=== PATIENT | male | born 1945 | race Caucasian/White ===

== ENCOUNTER → 2017-03-21 | Day surgery (SDC) | payer MEDICARE, OTHER ==
[~2017-03-21] MED LIST: AMLODIPINE BESYL5 MG PO; ASPIRIN ENTERI325 M1 PO; ASPIRIN PO; AZITHROMYCIN500 MG PO; BAYER ASPIRIN325 M1 PO; BYSTOLIC5 MG PO; CARBATROL200 MG PO; COMBIVENT U/D3 ML INH; CRESTOR PO; FISH OIL 1,0001 CAP PO; FISH OIL 1,0001 EAC1 PO; GLIPIZIDE XL5 MG PO; GLIPIZIDE5 MG/BOTTL PO; GLUCOPHAGE500 MG PO; HCTZ PO; HUMIBID-LA600 MG PO; HYDRALAZINE HCL25 MG PO; HYDROCODON-ACE1 EAC9 PO; HYDROCORTISONE10 M2 PO; KEFLEX500 MG PO; LISINOPRIL PO; LISINOPRIL10 MG PO; LOPRESSOR PO; PLAVIX PO; PREDNISONE10 MG PO; PRINIVIL40 MG PO; PROTONIX PO; SIMVASTATIN40 MG PO; SIMVASTATIN80 MG PO; SPIRIVA18 MCG INH; SYMBICORT INH; TOPROL XL PO; ZOCOR PO
--- NOTE | ~2017-03-21 | OR ---
Unit #: [id number] #: [id number] Patient: MOMO ALEMAN [id number] [address] [address] [id number] O MR#: [id number] NAME: MOMO ALEMAN ROOM: Date of Procedure: 03/21/2017 Admission Date: 03/21/2017 Surgeon: Domenico Haider M.D. : 1945 Attending Physician: Domenico Haider M.D. Primary Care Physician: Marj Brown M.D. OPERATIVE REPORT PREOPERATIVE DIAGNOSES Neck pain, cervical radiculopathy, degenerative cervical disk and spine disease. POSTOPERATIVE DIAGNOSES Neck pain, cervical radiculopathy, degenerative cervical disk and spine disease. PROCEDURE PERFORMED Cervical epidural steroid injection with intravenous sedation under fluoroscopic guidance for needle localization. HISTORY The patient is a 71-year-old male with a several week history of worsening left periscapular, trapezius, shoulder and upper extremity pain, paresthesia and numbness. There was no weakness. There was no specific triggering etiology for this. It was concerned that there maybe a component of shoulder pathology, however, an intra-articular injection did not change his symptom complex. He failed to settle with conservative measures. So, plan is for trial of epidural steroids based on his history, pathology, and symptomatology. Risks and benefits involved were reviewed. DESCRIPTION OF PROCEDURE The patient was placed in a seated position. Standard monitors were applied. Then, 2 mg of Versed were given for sedation and anxiolysis, which were adequate. Vital signs remained stable. Sterile prep and drape then of the cervical area was performed. The skin at the C5-C6 level was localized with 1% lidocaine. An 18-gauge [employer] needle was then advanced via hanging drop technique under fluoroscopic guidance in toward the epidural space. The patient did not complain of pain or paresthesia during needle advancement. After confirming proper positioning with fluoroscopy and radiographic contrast, 80 mg of Depo-Medrol and 2 mL of 0.25% bupivacaine were deposited. The patient tolerated the procedure otherwise well and was discharged to the recovery room in stable condition. Dictated by... Domenico Haider M.D. LHP/modl Unit #: [id number] #: [id number] Patient: MOMO ALEMAN TD: 03/21/2017 08:41 JOB #: [id number] CC: Alen Sharma M.D. OPERATIVE REPORT Page 1 of 1 X Domenico Haider MD X PROCEDURE OPERATIVE NOTE
== END | disposition home or self-care (01) ==
LOC: CCSC 07:08
DX: M50.122 Cervical disc disorder at C5-C6 level with radiculopathy (principal); M50.121 Cervical disc disorder at C4-C5 level with radiculopathy; I10 Essential (primary) hypertension; I73.9 Peripheral vascular disease, unspecified; M19.90 Unspecified osteoarthritis, unspecified site; Z79.899 Other long term (current) drug therapy
CPT/HCPCS: 82947; J1040; J2250

== ENCOUNTER → 2017-03-28 | Day surgery (SDC) | payer MEDICARE, OTHER ==
--- NOTE | ~2017-03-28 | OR ---
Unit #: [id number] #: [id number] Patient: MOMO ALEMAN [id number] [address] [address] [id number] O MR#: [id number] NAME: MOMO ALEMAN ROOM: Date of Procedure: 03/28/2017 Admission Date: 03/28/2017 Surgeon: Domenico Haider M.D. : 1945 Attending Physician: Domenico Haider M.D. Primary Care Physician: Marj Brown M.D. PROCEDURE OPERATIVE NOTE PREOPERATIVE DIAGNOSIS Neck pain, cervical radiculopathy, degenerative cervical disc and spine disease. POSTOPERATIVE DIAGNOSIS Neck pain, cervical radiculopathy, degenerative cervical disc and spine disease. PROCEDURE PERFORMED Cervical epidural steroid injection with intravenous sedation under fluoroscopic guidance for needle localization. HISTORY The patient is a 71-year-old male with a several months history of worsening left parascapular, shoulder and upper extremity pain, intermittent right upper extremity numbness, felt to be associated with cervical disc and spine disease. (1) multi-level significant degenerative disc disease with significant C4-5 degenerative anterolisthesis. Decision was made with the patient for a trial of epidural steroid injections. Initial injection along the cervical spine resulted in mild change at best. Based on his pathology and symptomatology of expected better response, it sometimes does take several injections to have a better impact. Will proceed with a second injection today and enter at a different level. PROCEDURE The patient was placed in a seated position. Standard monitors were applied. 2 mg of versed were given for sedation and anxiolysis which were adequate. Vital signs remained stable. Sterile prep and drape then of the cervical area was performed. The skin then at the C5-6 level was localized with 1% lidocaine. An 18-gauge [employer] needle was then advanced via hanging drop technique and fluoroscopic guidance in toward the epidural space. After confirming proper positioning with fluoroscopy and radiographic contrast, a dose of 80 mg of Depo-Medrol and 2 mL of 0.25% bupivacaine were deposited. The patient tolerated the procedure otherwise well and was discharged to the recovery room in stable condition. Dictated by... Domenico Haider M.D. Unit #: [id number] #: [id number] Patient: LOVEMOMO/nitin TD: 03/28/2017 09:02 JOB #: [id number] PROCEDURE OPERATIVE NOTE Page 1 of 1 X Domenico Haider MD X PROCEDURE OPERATIVE NOTE
== END | disposition home or self-care (01) ==
LOC: CCSC 07:10
DX: M50.10 Cervical disc disorder with radiculopathy, unspecified cervical region (principal); I10 Essential (primary) hypertension; I73.9 Peripheral vascular disease, unspecified; Z79.82 Long term (current) use of aspirin; Z79.84 Long term (current) use of oral hypoglycemic drugs; Z79.51 Long term (current) use of inhaled steroids; Z79.899 Other long term (current) drug therapy
CPT/HCPCS: 82947; J1040; J2250

== ENCOUNTER → 2017-04-04 | Day surgery (SDC) | payer MEDICARE, OTHER ==
--- NOTE | ~2017-04-04 | OR ---
Unit #: [id number] #: [id number] Patient: MOMO ALEMAN [id number] [address] [place], [place] [address] [id number] O MR#: [id number] NAME: MOMO ALEMAN. ROOM: Date of Procedure: 04/04/2017 Admission Date: 04/04/2017 Surgeon: Domenico Haider M.D. : 1945 Attending Physician: Domenico Haider M.D. Primary Care Physician: Marj Brown M.D. OPERATIVE REPORT PREOPERATIVE DIAGNOSES 1. Neck pain. 2. Cervical radiculopathy. 3. Degenerative cervical disk and spine disease. 4. Cervical spondylolisthesis. POSTOPERATIVE DIAGNOSES 1. Neck pain. 2. Cervical radiculopathy. 3. Degenerative cervical disk and spine disease. 4. Cervical spondylolisthesis. PROCEDURE PERFORMED Cervical epidural steroid injection with intravenous sedation and fluoroscopic guidance for needle localization. HISTORY This is a 71-year-old male who presented with a several-month history of worsening left trapezius periscapular shoulder pain and also some intermittent right upper extremity numbness. He has degenerative disk disease at C4 through C7. He failed to settle with conservative measures. Shoulder injection did not help at all. Failing with those, issues were emanating from the cervical spine. The decision made to give a trial of epidural steroids treatment at this point. First injection given minimal improvement. Second injection gave him at least 50% settling of the neck periscapular and shoulder area pain. He still does have intermittent right upper extremity numbness. Radiograph shows fairly significant pathology, worsening at the C4-C5 level, 2 injections were done below this level. We try to injection above level to get better control of the residual symptoms. DESCRIPTION OF PROCEDURE The patient was placed in a seated position. Standard monitors were applied. Versed 2 mg were given for sedation and anxiolysis, which were adequate. Vital signs remained stable. Sterile prep and drape then of the cervical area was performed. The skin then at the C4-C5 level was localized with 1% lidocaine. An 18-gauge [employer] needle was then advanced via hanging drop technique and fluoroscopic guidance in toward the epidural space. After confirming proper positioning with fluoroscopy and radiographic contrast, a dose of 80 mg of Depo-Medrol and 2 mL of 0.25% bupivacaine were deposited. The patient tolerated the procedure otherwise well and was discharged to the recovery room in stable. Unit #: [id number] #: [id number] Patient: MOMO ALEMAN Dictated by... Kulwinder Philippe/simeon TD: 04/04/2017 10:59 JOB #: [id number] CC: Kulwinder Lomeli M.D. OPERATIVE REPORT Page 1 of 1 X Domenico Haider MD X PROCEDURE OPERATIVE NOTE
== END | disposition home or self-care (01) ==
LOC: CCSC 07:09
DX: M50.121 Cervical disc disorder at C4-C5 level with radiculopathy (principal); M50.122 Cervical disc disorder at C5-C6 level with radiculopathy; M50.123 Cervical disc disorder at C6-C7 level with radiculopathy; M43.12 Spondylolisthesis, cervical region; I10 Essential (primary) hypertension; M19.90 Unspecified osteoarthritis, unspecified site; E11.9 Type 2 diabetes mellitus without complications
CPT/HCPCS: 82947; J1040; J2250

== ENCOUNTER 2017-04-18 11:30 | Inpatient (IN) | payer MEDICARE, OTHER ==
--- NOTE | ~2017-04-18 | HP ---
Unit #: [id number] #: [id number] Patient: MOMO LYNN [id number] [address] [address] [id number] I MR#: [id number] NAME: MOMO LYNN. ROOM: 238 Age: 71 Sex: M Admission Date: 04/18/2017 : 1945 Attending Physician: Marj Brown M.D. Primary Care Physician: Marj Brown M.D. HISTORY AND PHYSICAL CHIEF COMPLAINT Generalized weakness, diarrhea, vomiting, loss of appetite and dizziness. HISTORY OF PRESENTING ILLNESS Mr. Lynn is a 71-year-old male with multiple medical problems, has been having problem for the last five days. Two days ago he went to see Dr. Brown and some lab workup was done and patient continued to have vomiting and generalized weakness and dizziness. Patient went back again today, was seen by Dr. Figueroa, was advised to be admitted to the hospital. Patient has not been eating at all for the last five days. He does not have any appetite. His last vomiting was yesterday. Today he has not vomited. Again, he has not eaten anything. He has constipation. No complaint of diarrhea. No complaint of abdominal pain. No complaint of chest pain. He has not had any syncopal episode. PAST MEDICAL HISTORY 1. Coronary artery disease, status post angioplasty and stent placement x2. 2. Permanent pacemaker placement. 3. Hypertension. 4. Diabetes mellitus type 2. 5. Hyperlipidemia. 6. Tobacco abuse. PAST SURGICAL HISTORY 1. History of pacemaker. 2. History of excision of pilar cyst on the scalp. FAMILY HISTORY Family history is positive for coronary artery disease in his sister and mother. SOCIAL HISTORY Patient lives at home with his girlfriend. He is a smoker and continues to smoke up to one pack per day. No history of alcohol abuse or drug abuse. ALLERGIES No known drug allergies. HOME MEDICATIONS 1. Crestor 20 mg daily. 2. Prinivil 40 mg daily. Unit #: [id number] #: [id number] Patient: MOMO LYNN 3. Glipizide 5 mg daily. 4. Aspirin 325 mg daily. 5. Glucophage 500 mg b.i.d. 6. Lopressor 50 mg daily. 7. Fish oil capsule 1000 mg b.i.d. 8. Spiriva one inhaler daily. 9. Symbicort 160/4.5 two puffs b.i.d. 10. Hydralazine 25 mg t.i.d. 11. [place] 7.5/325 one tablet q.6 h. p.r.n. REVIEW OF SYMPTOMS As per history of presenting illness. PHYSICAL EXAMINATION GENERAL APPEARANCE: Patient is lying comfortably in bed, does not seem to be in any respiratory distress. VITAL SIGNS: Blood pressure is 128/60. Respiratory rate 18. Pulse is 76. Temperature 97.7. HEENT: Head is normocephalic. Eye movements are normal. No conjunctival congestion. No nystagmus. NECK: Neck is supple. CHEST: Has fair air entry, no additional sounds. CVS: S1, S2 positive, regular rhythm. ABDOMEN: Soft. No tenderness. No rigidity. No rebound. EXTREMITIES: Negative edema. Pulses are palpable. WAITER/WAITRESS COCKTAIL LOUNGE: Patient is awake, alert, oriented x3. No focal neurological deficits. DIAGNOSTIC STUDIES LABORATORY: Labs are still pending. ASSESSMENT Patient is being admitted to a med/surg unit with: 1. Generalized weakness. 2. Hyponatremia. 3. Nausea and vomiting. 4. Loss of appetite. 5. Dizziness. 6. Other medical history includes coronary artery disease, hypertension, hyperlipidemia, diabetes mellitus, tobacco abuse. PLAN Plan is admit to med/surg unit. Lab workup including CBC, CMP, troponin, urinalysis is being done. EKG will be done. IV fluid normal saline at 75 mL an hour will be started. Labs from Dr. Brown's office will be obtained. Patient is being started on Lovenox 40 mg subcu daily for DVT prophylaxis. Protonix 40 mg p.o. daily is being started. Discussed with patient and the patient's girlfriend at length about plan of care; they do verbalize understanding. Please refer to progress note for further orders. Tobacco cessation counseling done. Dictated by Sharon Churchill M.D. Unit #: [id number] #: [id number] Patient: MOMO LYNN Kalpesh ARTIS/nasir TD: 04/18/2017 15:49 JOB #: [id number] HISTORY AND PHYSICAL Page 1 of 1 X Sharon Churchill MD HISTORY AND PHYSICAL
--- NOTE | ~2017-04-18 | EKG ---
PATIENT: MOMO ALEMAN UNIT #: [id number] Ventricular Rate: 66 BPM Atrial Rate: 66 BPM P-R Interval: 164 ms QRS Duration: 132 ms Q-T Interval: 418 ms QTC Calculation(Bezet): 438 ms P [place]: 81 degrees Calculated R [place]: 67 degrees Calculated T [place]: 42 degrees Diagnosis Line: Normal sinus rhythm Diagnosis Line: Right bundle branch block Diagnosis Line: Abnormal ECG Diagnosis Line: When compared with ECG of 17-OCT-2015 11:42, Diagnosis Line: No significant change was found Diagnosis Line: Confirmed by EMMA FRANKLIN MD ([id number]) on 04/18/2017 Diagnosis Line: 6:59:45 PM INTERPRETING MD: RIGOBERTO ZARAGOZA
--- NOTE | ~2017-04-18 | NM19 ---
[facility] A Service [facility] RADIOLOGY TEXT RESULTS PATIENT: MOMO ALEMAN LOCATION: A 238-01 : 43 UNIT #: [id number] AGE: [address]: Marj Brown MD SEX: M ORDER DR: [id number] [facility] [address] [place], [place] [address] [id number] I MR#: [id number] Acc #: [id number] NAME: MOMO ALEMAN. : 1945 SEX: M STUDY DATE/TIME: 04/23/2017 7:53 UNIT: C2A ROOM: 238 STUDY DESCRIPTION: NM Gastric Emptying Study Attending Physician: Marj Brown M.D. Ordering Physician: Duane Ewing M.D. Primary Care Physician: Marj Brown M.D. MEDICAL IMAGING REPORT This report is preliminary unless electronic signature is present EXAM Radionuclide gastric emptying scan, 04/23/2017. HISTORY Nausea, had 1 day of vomiting episodes that starting by drinking water. Appetite loss. Constipation. Pain between shoulders that would radiate down left arm 1 month ago. Has started again with the stomach episodes. Symptoms started about 6-7 days ago. No abdominal surgery. No history of cancer. TECHNIQUE Following ingestion of 523 mcCi technetium-99m sulfur colloid admixed with eggs, anterior and posterior views of abdomen obtained at 0, 60, 120, and 240 minutes postingestion. Regions of interest drawn around stomach and time-activity curve constructed. FINDINGS Percent remaining at time intervals as follows: 60 minutes - 62%, 120 minutes - 20%, 240 minutes - 1%. Percent empty at time intervals as follows: 60 - 38%, 120 minutes - 80%, 240 minutes - 99% empty. IMPRESSION Two-hour solid-phase gastric emptying is 80%. Normal is greater than 60%. Four-hour solid-phase gastric emptying is 99%. Normal is greater than 90%. Dictated by... Mendoza Grant M.D. [facility] A Service [facility] RADIOLOGY TEXT RESULTS PATIENT: MOMO ALEMAN LOCATION: [facility] 238-01 : 43 UNIT #: [id number] AGE: [address]: Marj Brown MD SEX: M ORDER DR: THIS IS AN ELECTRONICALLY VERIFIED REPORT Mendoza Grant M.D. at 04/23/2017 5:16 PM Jomar TD: 04/23/2017 14:32 JOB #: [id number] MEDICAL IMAGING REPORT Page 1 of 1 COPY
--- NOTE | ~2017-04-18 | CT71 ---
[facility] A Service of [facility] RADIOLOGY TEXT RESULTS PATIENT: MOMO ALEMAN LOCATION: C2A 238-01 : 43 UNIT #: [id number] AGE: [address]: Marj Brown MD SEX: M ORDER DR: [id number] [facility] [address] [place], [place] [address] [id number] I MR#: [id number] Acc #: [id number] NAME: MOMO ALEMAN. : 1945 SEX: M STUDY DATE/TIME: 04/19/2017 18:21 UNIT: A ROOM: [facility] STUDY DESCRIPTION: CT Head Wo Contrast Attending Physician: Marj Brown M.D. Ordering Physician: Chito Obregon Jr., M.D. Primary Care Physician: Marj Brown M.D. MEDICAL IMAGING REPORT This report is preliminary unless electronic signature is present EXAM CT head without contrast dated 04/19/2017. COMPARISON CT head without contrast dated 02/22/2009. HISTORY Weakness. Dizziness. Shortness of air. Nausea and vomiting. Constipation. Loss of appetite for [address] exam was performed with one or more of the following radiation dose reduction techniques: automatic exposure control, adjustment of mA and/or kV according to patient size, and iterative reconstruction. CT of the head was obtained without contrast in the axial plane as per protocol. FINDINGS No acute intracranial hemorrhage, space-occupying mass, mass effect, midline shift or hydrocephalus. There is a hypodense 0.9 x 0.6 cm lesion in the right caudate head, incompletely characterized on the current study. Atherosclerotic vascular calcifications are noted in bilateral vertebral arteries and in bilateral intracranial internal carotid arteries. S-shaped nasal septal deviation is seen. Mild paranasal sinus mucosal thickening is noted with small judith bullosa bilateral middle turbinates. Mastoid air cells and bones appear to be grossly unremarkable. There is diffuse fatty infiltration of the right parotid gland, benign. IMPRESSION 1. There is a 0.9 x 0.6 cm hypodense lesion in the right caudate head, [facility] A Service of [facility] RADIOLOGY TEXT RESULTS PATIENT: MOMO ALEMAN LOCATION: A 238-01 : 43 UNIT #: [id number] AGE: [address]: Marj Brown MD SEX: M ORDER DR: larger when compared to the [id number]-mm lesion noted in the CT head from 2008. 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 2. No acute intracranial hemorrhage, space-occupying mass, hydrocephalus or midline shift. Dictated by... Stalin Rios M.D. THIS IS AN ELECTRONICALLY VERIFIED REPORT Stalin Rios M.D. at 04/22/2017 5:04 PM CPR/pcl TD: 04/19/2017 22:43 JOB #: [id number] MEDICAL IMAGING REPORT Page 1 of 1 COPY
--- NOTE | ~2017-04-18 | CT57 ---
[facility] A Service of [facility] RADIOLOGY TEXT RESULTS PATIENT: MOMO ALEMAN LOCATION: [facility] : 43 UNIT #: [id number] AGE: [address]: Marj Brown MD SEX: M ORDER DR: [id number] [facility] [address] [place], [place] [address] [id number] I MR#: [id number] Acc #: [id number] NAME: MOMO ALEMAN. : 1945 SEX: M STUDY DATE/TIME: 04/19/2017 18:23 UNIT: [facility] ROOM: [facility] STUDY DESCRIPTION: CT Chest Wo Cont Attending Physician: Marj Brown M.D. Ordering Physician: Chito Obregon Jr., M.D. Primary Care Physician: Marj Brown M.D. MEDICAL IMAGING REPORT This report is preliminary unless electronic signature is present EXAM CT chest without contrast HISTORY Weakness, dizzy, shortness of air for [address] exam was performed with one or more of the following radiation dose reduction techniques: automatic control, adjustment of mA and/or kV according to patient size, and iterative reconstruction. FINDINGS CT chest without contrast demonstrates no focal infiltrates or effusions. Minimal subpleural atelectasis or scarring in the posterior right lower lobe. No adenopathy. Small calcified mediastinal and right hilar nodes. Partly calcified aortic valve. IMPRESSION No acute findings in the chest. No evidence of active disease. No pulmonary infiltrates or adenopathy. Dictated by... Kishor Canseco M.D. THIS IS AN ELECTRONICALLY VERIFIED REPORT Kishor Canseco M.D. at 04/19/2017 11:14 PM DFL/rnr TD: 04/19/2017 23:00 JOB #: [id number] MEDICAL IMAGING REPORT [facility] A Service [facility] RADIOLOGY TEXT RESULTS PATIENT: MOMO ALEMAN LOCATION: [facility] : 43 UNIT #: [id number] AGE: [address]: Marj Brown MD SEX: M ORDER DR: Page 1 of 1 COPY
--- NOTE | ~2017-04-18 | CT4 ---
[facility] A Service of [facility] RADIOLOGY TEXT RESULTS PATIENT: MOMO ALEMAN LOCATION: C2A 238- : 43 UNIT #: [id number] AGE: [address]: Marj Brown MD SEX: M ORDER DR: [id number] [facility] [address] [place], [place] [address] [id number] I MR#: [id number] Acc #: [id number] NAME: MOMO ALEMAN. : 1945 SEX: M STUDY DATE/TIME: 04/19/2017 18:23 UNIT: C2A ROOM: 238 STUDY DESCRIPTION: CT Abd and Pelv Wo Cont Attending Physician: Marj Bronw M.D. Ordering Physician: Chito Obregon Jr., M.D. Primary Care Physician: Marj Brown M.D. MEDICAL IMAGING REPORT This report is preliminary unless electronic signature is present EXAM CT abdomen and pelvis without IV contrast. COMPARISON CT chest on the same day as well as CT chest dated October 15, 2015, and renal ultrasound dated October 15, 2015. INDICATION 71-year-old male with nausea, emesis and loss of appetite for [address] exam was performed with one or more of the following radiation dose reduction techniques: automatic exposure control, adjustment of mA and/or kV according to patient size, and iterative reconstruction. FINDINGS Axial CT imaging of the abdomen and pelvis was performed without IV contrast. Coronal and sagittal reformats were constructed. Lack of IV contrast limits evaluation of adenopathy, vasculature and viscera. There is a tiny fat-containing umbilical hernia. Foci of subcutaneous gas are seen over the left lower anterior abdominal wall most consistent with recent subcutaneous injection. There is annular calcification at the level of the mitral valve. Cardiac leads are incompletely imaged. Evaluation of the lungs is mildly limited by motion. There is calcified granuloma in the posterior basilar segment of the right lower lobe. There is linear calcification at the periphery of the right hepatic lobe, perhaps due to remote trauma. Gallbladder is fluid distended, but otherwise, unremarkable. No evidence of biliary obstruction. Mild fatty replacement of the pancreas. Spleen is unremarkable. There is a left adrenal nodule measuring up to 2.2 cm, stable from October 2015, favoring a benign adenoma. There is grossly stable nonspecific bilateral STS. [facility] A Service of [facility] RADIOLOGY TEXT RESULTS PATIENT: MOMO ALEMAN LOCATION: [facility] 238-01 : 43 UNIT #: [id number] AGE: [address]: Marj Brown MD SEX: M ORDER DR: perinephric stranding perhaps due to remote infection or prior obstruction. Nonobstructive calculi in the right kidney. No ureteral calculi. Urinary bladder is unremarkable. Prostate gland is normal in size and shape. Calcified pelvic phlebolith. Diverticulosis of the left colon and sigmoid colon without evidence of acute diverticulitis. No evidence of bowel obstruction. Oral contrast reaches the cecum. The appendix is normal. No free fluid or pneumoperitoneum. There is diffuse calcification of the abdominal aorta extending into iliac arteries and femoral arteries bilaterally. There is mild aneurysm of the infrarenal abdominal aorta measuring up to 3.1 cm. There are calcifications of the proximal celiac, superior mesenteric and renal arteries. Mild degenerative changes of the pubic symphysis. Mild multilevel degenerative facet disease of the lower lumbar spine. Degenerative disc disease and degenerative endplate change noted at L2-L3. There are posterior disc protrusions at all levels of the lumbar spine with sparing at L1-L2. IMPRESSION 1. No acute findings in the abdomen, pelvis or imaged lower chest. 2. Fluid distension of the gallbladder without evidence of radiopaque cholelithiasis or cholecystitis. Normal biliary caliber. 3. Diffuse arterial calcifications in the abdomen, pelvis and proximal thighs. 4. Mild aneurysm of the infrarenal abdominal aorta measuring 3.[address] follow up in one year is recommended to document stability. 5. Stable 2.2 cm nodule in the left adrenal gland as compared to October 2015, most likely reflecting a benign adenoma given stability. 6. Diverticulosis without evidence of acute diverticulitis. 7. Multilevel posterior disc protrusions of the lumbar spine. 8. Nonobstructive right renal calculi. Dictated by... Wayne Quiroz M.D. THIS IS AN ELECTRONICALLY VERIFIED REPORT Wayne Quiroz M.D. at 04/24/2017 9:24 PM Evan TD: 04/19/2017 22:50 JOB #: [id number] MEDICAL IMAGING REPORT Page 1 of 1 COPY
--- NOTE | ~2017-04-18 | CO ---
Unit #: [id number] #: [id number] Patient: MOMO ALEMAN [id number] [address] [address] [id number] I MR#: [id number] NAME: MOMO ALEMAN. ROOM: 238 Age: 71 Sex: M Admission Date: 04/18/2017 : 1945 Attending Physician: Marj Brown M.D. Primary Care Physician: Marj Brown M.D. Consultation Date: 04/22/2017 CONSULTATION REPORT REASON FOR CONSULTATION Possible adrenal insufficiency. HISTORY OF PRESENT ILLNESS This is a 71-year-old male, who has multiple medical problems with history of adrenal adenoma, who was initially admitted after having a lab work done, which showed the hyponatremia and hyperkalemia. The patient does report that for the last 5 to 6 days, he has not been feeling well and reports generalized weakness, loss of appetite, unable to eat. He had some nausea and vomiting on admission, but since then he has had no abdominal pain or vomiting. He has no diarrhea. I have been asked to see the patient for possible adrenal insufficiency. PAST MEDICAL HISTORY Diabetes mellitus type 2, coronary artery disease plus stent placement, angioplasty, permanent pacemaker, hyperlipidemia, tobacco use. SURGICAL HISTORY Pacemaker and excision. FAMILY HISTORY Positive for coronary artery disease. SOCIAL HISTORY Lives at home with his girlfriend. He is a smoker. Continues to smoke one pack per day. No alcohol. ALLERGIES No known drug allergies. HOME MEDICATIONS Include glipizide 5 mg daily, Glucophage 500 mg b.i.d., Lopressor, fish oil, Symbicort, hydralazine, [place]. REVIEW OF SYSTEMS A 12-point review of system was completed. Please see HPI. PHYSICAL EXAMINATION GENERAL: He is awake, alert, oriented to time, place, and person. Not in any acute distress. VITAL SIGNS: Stable. Temperature 98.2, pulse 61, respirations 16, blood pressure 138/71. HEENT: EOMI. Pupils equally reactive to light. NECK: Supple. No thyromegaly noted. Unit #: [id number] #: [id number] Patient: MOMO ALEMAN CHEST: Good air entry. CVS: Regular rhythm. No murmurs. ABDOMEN: Soft and nontender. Bowel sounds positive. EXTREMITIES: No edema or ulcers are noted. NEUROLOGIC: Nonfocal. DIAGNOSTIC STUDIES LABORATORY RESULTS: Sodium is 128, CO2 is 22. A1c 6.1. Cortisol is 4. ASSESSMENT 1. Hyponatremia with some hyperkalemia. 2. History of adrenal adenoma. 3. History of tobacco use. PLAN We will check the ACTH stimulation test. Check free T4. Discontinue Solu-Medrol. We will continue to follow the patient for further management depend upon the ACTH stimulation test results. Thanks again for consultation. Dictated by... Kulwinder Ibrahim/simeon TD: 04/23/2017 05:26 JOB #: [id number] CONSULTATION REPORT Page 1 of 1 X Karoline Diggs MD X CONSULTATION REPORT
--- NOTE | ~2017-04-18 | CO ---
Unit #: [id number] #: [id number] Patient: MOMO LYNN [id number] [address] [address] [id number] I MR#: [id number] NAME: MOMO LYNN. ROOM: 238 Age: 71 Sex: M Admission Date: 04/18/2017 : 1945 Attending Physician: Marj Brown M.D. Primary Care Physician: Marj Brown M.D. Consultation Date: 04/19/2017 CONSULTATION REPORT REASON FOR CONSULTATION Hyponatremia. HISTORY OF PRESENT ILLNESS Mr. Lynn is a very pleasant 71-year-old gentleman who was sent in due to abnormal blood work with a low blood sugar of 56, and sodium level just 129. He also had an elevated potassium level of 5.5. The patient tells me that he has been feeling poorly for the better part of one week with generalized weakness accompanied with loss of appetite, nausea, vomiting with dry heaves, and dizziness with a mild headache. He had been in to see Dr. Brown with workup revealing the labs above prompting this admission. His sodium level has improved somewhat with fluids, but his appetite has not gotten any better. He denies really any other GI complaints specifically, no abdominal pain. No heartburn. No bright red blood per rectum or melena. He says that he has had a colonoscopy in the past. He does continue to smoke despite his medical history. He drinks limited alcohol. No NSAID use. He is no longer on Tegretol which was previously thought to be playing a role when Dr. Zuniga saw him back in 2014. No swelling. No rashes. PAST MEDICAL HISTORY Significant for coronary artery disease with stenting x3, history of permanent pacemaker placement, hypertension, diabetes, hyperlipidemia, tobacco abuse, chronic neck and back pain. PAST SURGICAL HISTORY He has had a pacemaker and cyst removed from his scalp. HOME MEDICATIONS [place] p.r.n., hydralazine 25 mg t.i.d., Symbicort inhaler, Spiriva inhaler, fish oil b.i.d., Lopressor 50 mg a day, Glucophage 500 mg b.i.d., aspirin daily, glipizide 5 mg a day, Prinivil 40 mg a day, and Crestor 20 mg a day. ALLERGIES He has no known drug allergies. FAMILY HISTORY Significant for heart disease. No family history of any kidney problems. SOCIAL HISTORY The patient lives with his girlfriend. He continues to smoke about a pack of cigarettes per day, about one alcoholic drink on average per day. No drug use. Unit #: [id number] #: [id number] Patient: MOMO LYNN REVIEW OF SYSTEMS A complete 12-point review of systems was completed with the above findings. In addition, he thinks he may have lost some weight. No fevers. No chills. No nosebleed, sore throat, or earache. No chest pain or palpitations. No hemoptysis. No dysuria or hematuria. No pruritus. No flank pain. No night sweats or hot flashes. No intolerance to heat or cold. No bleeding issues. Unless otherwise indicated, the review of systems was negative. PHYSICAL EXAMINATION VITAL SIGNS: The patient is afebrile, pulse 60, respiratory rate 17, and blood pressure 153/63. GENERAL: This is a 71-year-old male, lying in bed, appears weak, and like he does not feel good, but in no acute distress. HEENT: Head is atraumatic and normocephalic. Eyes show pink conjunctivae. No nasal drainage or nosebleed. Oropharynx is slightly dry. No thrush. NECK: Shows no rigidity, no JVD. HEART: Regular rate and rhythm with no murmurs or rubs appreciated. LUNGS: Clear anteriorly with no wheezing or rhonchi. Breathing is nonlabored. ABDOMEN: Soft and nontender on my exam with some bowel sounds present. No rebound or guarding. EXTREMITIES: No lower extremity cyanosis or pitting edema. SKIN: Dry without rashes. MUSCULOSKELETAL: No CVA tenderness to palpation. NEUROLOGICAL: Cranial nerves appear grossly intact with no gross motor deficits. PSYCHIATRIC: Mood and affect appear normal. DIAGNOSTIC STUDIES LABORATORY RESULTS: Urinalysis done earlier today showed a specific gravity of 1.014 with no significant protein or blood. Last blood sugar was 77. Chemistry at 5:00 this morning noteworthy for a sodium of 127, potassium 4.8, chloride 95, bicarb 23, glucose 93, BUN 21, creatinine of 1. On admission, sodium level was 124 and on outpatient labs sodium level was 129 with an elevated potassium of 5.5 and a blood sugar of just 56, prior sodium levels here at [facility]. Paola's have all been low going back to 2008. Previous TSH level was within normal range. Urine specimen from 10/2015 showed a urine osmolality of 289 with a sodium of 14. IMAGING STUDIES: I did review a CT scan of the chest from 10/2015 that showed some pneumonia, also there was an incidental left adrenal myelolipoma measuring 2.3 x 2.4 cm. Kidney ultrasound at that time was unremarkable. He had a CT of the head in 2008 that showed chronic right lacunar infarct and advanced disease. ASSESSMENT AND PLAN 1. Hyponatremia. This is acute on chronic issue, again going back for several years. He does seem to be responding somewhat to saline, so there may be a hypovolemic component, but certainly wonder about underlying syndrome of inappropriate antidiuretic hormone with his chronic obstructive pulmonary disease. However, his urine osmolality last admission was not that bad and also looks like he is able to dilute his urine on his urinalysis here. I will be sending off blood and urine studies for syndrome of inappropriate antidiuretic hormone workup and continue with saline for now. Unit #: [id number] #: [id number] Patient: MOMO LYNN 2. Hyperkalemia. This is improved and certainly need to watch his FREYA inhibitor. With his low sodium and elevated potassium level and low blood sugar, we do need to send off a cortisol level. 3. Hypertension. Blood pressure is reasonable on the home medicines that Dr. Churchill has restarted. We will monitor response and make further recommendations as needed. 4. Diabetes with low sugars, off medications at this time. Again with his low sugars, I do feel we should check a cortisol level. 5. Ongoing weakness, nausea, vomiting, and poor appetite with dizziness. He is a smoker. This would appear to me to not be related to hyponatremia as this has been a chronic issue. Would also not appear to be related to stomach virus that has been going on for some time. I will check a CT scan of the head, chest, and abdomen for workup. We will also check a cortisol level with his previous adrenal lesion on the left. 6. Chronic obstructive pulmonary disease with tobacco abuse. 7. Certainly wonder if we should not get a GI evaluation with all of his GI symptoms. I would like to thank Dr. Churchill for this consult and the opportunity to participate in evaluation and care of Mr. Lynn. Dictated by... Chito Obregon Jr., M.D. SJK/simeon TD: 04/20/2017 08:51 JOB #: [id number] CONSULTATION REPORT Page 1 of 1 X Chito Obregon MD X CONSULTATION REPORT
--- NOTE | ~2017-04-18 | OR ---
Unit #: [id number] #: [id number] Patient: MOMO ALEMAN [id number] [address] [address] [id number] I MR#: [id number] NAME: MOMO ALEMAN. ROOM: 238 Date of Procedure: 04/22/2017 Admission Date: 04/18/2017 Surgeon: Duane Ewing M.D. : 1945 Attending Physician: Marj Carrera M.D. Primary Care Physician: Marj Carrera M.D. OPERATIVE REPORT JOB NOTE: CC: DR. CARRERA INDICATIONS FOR PROCEDURE Esophagogastroduodenoscopy with biopsy. INDICATIONS FOR PROCEDURE The patient with persistent nausea and vomiting, undergoing evaluation with upper endoscopy. MEDICATIONS Monitored anesthesia. POSTOPERATIVE FINDINGS 1. Normal esophagus, but for small hiatal hernia. 2. Chronic appearing gastritis, biopsies taken. 3. Normal duodenum and distal duodenum. PLAN Follow up on the pathology report. Continue with symptomatic treatment. Also consider gastric emptying scan. DESCRIPTION OF PROCEDURE The patient was explained of the procedure, risks, and benefits along with risks and benefits of anesthesia. He was brought to the endoscopy room. Propofol anesthesia was given. Bite block was placed. The scope was passed down the mouth into the esophagus, stomach, duodenum, and distal duodenum. Findings as described. Biopsies taken. Gently, I pulled it out of the patient's mouth. He tolerated it well. Dictated by... Kulwinder Ramirez/simeon TD: 04/22/2017 08:19 JOB #: [id number] Unit #: [id number] #: [id number] Patient: MOMO ALEMAN OPERATIVE REPORT Page 1 of 1 X Duane Ewing MD X PROCEDURE OPERATIVE NOTE
--- NOTE | ~2017-04-18 | DS ---
Unit #: [id number] #: [id number] Patient: MOMO ALEMAN [id number] [address] [address] [id number] I MR#: [id number] NAME: MOMO ALEMAN. ROOM: 238 Age: 71 Sex: M Admission Date: 04/18/2017 : 1945 Discharge Date: 04/23/2017 Attending Physician: Marj Brown M.D. Primary Care Physician: Marj Brown M.D. DISCHARGE SUMMARY FINAL DIAGNOSES 1. 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 Patient may need to go on sodium chloride tablet. 2. Possible adrenal insufficiency: Patient has been seen by Dr. Diggs. He received intravenous Solu-Medrol during hospitalization. Cortisol testing has been done. Patient needs to follow with Dr. Diggs for further treatment plan. 3. Nausea and vomiting which is much improved: Patient was seen by Dr. Ewing, had EGD done which showed normal esophagus, chronic appearing gastritis and normal duodenum. Biopsies have been done. That needs to be reviewed as an outpatient. Patient should follow up with Dr. Ewing to get the biopsy results. Patient had a gastric emptying scan also done which shows it is pretty normal. 4. Hypertension: Patient's blood pressure is stable at this time. Continue medication. 5. Diabetes type 2, which is in good control. 6. History of coronary artery disease which is stable. 7. History of sick sinus syndrome, status post pacemaker placement. DISCHARGE MEDICATIONS 1. Protonix 40 mg p.o. daily. 2. Continue glipizide 5 mg daily. 3. Continue Lortab q.6 p.r.n. 4. Aspirin 325 mg daily. 5. Zestril 40 mg daily. 6. Hydralazine 25 mg t.i.d. 7. Lopressor 50 mg daily. 8. Crestor 20 mg daily. 9. Glucophage 500 b.i.d. 10. Spiriva daily. 11. Symbicort b.i.d. CONSULTATION DURING HOSPITALIZATION 1. Dr. Obregon - Renal Services. 2. Dr. Diggs - Endocrinology Services. 3. Dr. Ewing - GI Services. EXAM ON DISCHARGE VITAL SIGNS - blood pressure is 139/69, respiratory rate 18, pulse is 59, temperature 97.8. Oxygen saturation is 100%. CHEST has fair air entry. CVS is regular rhythm. ABDOMEN is soft. Unit #: [id number] #: [id number] Patient: MOMO ALEMAN DISCHARGE INSTRUCTIONS 1. Follow up with primary care provider in one week, BMP in one week. 2. Follow up with Dr. Diggs in two weeks for adrenal insufficiency management. 3. Follow up with Dr. Ewing in three weeks or so to go over biopsy results. Plan of care has been discussed with patient. Dictated by... Kulwinder Reid TD: 04/24/2017 09:26 JOB #: [id number] DISCHARGE SUMMARY Page 1 of 1 X Sharon Churchill MD X DISCHARGE SUMMARY
--- NOTE | ~2017-04-18 | CR63 ---
[facility] A Service of [facility] RADIOLOGY TEXT RESULTS PATIENT: MOMO ALEMAN LOCATION: C2A 238-01 : [birth year] UNIT #: [id number] AGE: [address]: Marj Brown MD SEX: M ORDER DR: [id number] [facility] [address] [place], [place] [address] [id number] I MR#: [id number] Acc #: [id number] NAME: MOMO ALEMAN. : 1945 SEX: M STUDY DATE/TIME: 04/19/2017 13:39 UNIT: C2A ROOM: 238 STUDY DESCRIPTION: CR Chest 2 View Attending Physician: Marj Brown M.D. Ordering Physician: Sharon Churchill M.D. Primary Care Physician: Marj Brown M.D. MEDICAL IMAGING REPORT This report is preliminary unless electronic signature is present EXAM Chest 04/19/2017. HISTORY 71-year-old male patient with weakness, short of air, nausea and vomiting. Symptoms x1 week. History of high blood pressure, COPD. COMPARISON Chest 10/14/2015. FINDINGS Two-view chest demonstrates normal stable heart size. Permanent pacemaker remains on the left with dual pacing leads well located. Hilar structures are preserved. Lungs are hyperinflated with mild flattening of both hemidiaphragms. There are no infiltrates. Costophrenic angles are preserved. IMPRESSION No acute chest finding. Dual pacing leads remain well positioned. Preexisting COPD unchanged. Dictated by... Pranav Henao M.D. THIS IS AN ELECTRONICALLY VERIFIED REPORT Pranav Henao M.D. at 04/19/2017 3:52 PM Vivi TD: 04/19/2017 15:50 JOB #: [id number] MEDICAL IMAGING REPORT Page 1 of 1 COPY
[~2017-04-18 11:30] MED LIST changes: -HYDROCODON-ACE1 EAC9 PO; -HYDROCORTISONE10 M2 PO; -PROTONIX PO
[2017-04-18] MEDS ORDERED: HYDROCODON-ACE1 EAC9 PO (14:49)
[2017-04-18 17:35] LABS: HEMATOCRIT 41.6 % (38.0-50.0); MEAN CELL VOLUME 93.1 FL (83-96); MEAN CORPUSCULAR HEMOGLOBIN 31.4 PG (28-34); MEAN CORPUSCULAR HGB CONC 33.7 g/dL (30-36); MEAN PLATELET VOLUME 7.5 FL (6.5-11.5); RED BLOOD COUNT 4.47 X10e (3.90-5.60); RED CELL DISTRIBUTION WIDTH 14.4 % (11.0-15.5); WHITE BLOOD COUNT 6.3 X10e3 (4.0-10.5)
[2017-04-18 18:05] LABS: ALBUMIN SERUM 3.7 g/dL (3.5-5.0); BILIRUBIN,TOTAL 0.7 mg/dL (0.2-2.0); BUN/CREATININE RATIO 21.81; CALCIUM SERUM 8.9 mg/dL (8.4-10.2); CREATININE SERUM 1.1 mg/dL (0.6-1.4); GLOM FILT RATE Estimated 66.3 mL/min (>60); POTASSIUM 4.6 mmol/L (3.5-5.1); PROTEIN TOTAL SERUM 6.5 g/dL (6.0-8.3)
[2017-04-19 07:00] LABS: CALCIUM SERUM 8.6 mg/dL (8.4-10.2); GLOM FILT RATE Estimated 74.3 mL/min (>60); POTASSIUM 4.8 mmol/L (3.5-5.1)
[2017-04-19 13:56] LABS: URINE APPEARANCE CLEAR; URINE BILIRUBIN NEG (NEG); URINE BLOOD NEG (NEG); URINE COLOR YELLOW; URINE GLUCOSE NEG (NEG); URINE KETONE 1+ (NEG); URINE LEUKOCYTE ESTERASE NEG (NEG); URINE NITRATE NEG (NEG); URINE PROTEIN NEG (NEG); URINE SPECIFIC GRAVITY 1.014 (1.003-1.035); URINE UROBILINOGEN 0.2 MG/DL (NEG)
[2017-04-19 16:54] LABS: URIC ACID 6.5 mg/dL (2.6-7.2)
[2017-04-20 06:56] LABS: BUN/CREATININE RATIO 18.88; CALCIUM SERUM 8.3 mg/dL (8.4-10.2); CREATININE SERUM 0.9 mg/dL (0.6-1.4); GLOM FILT RATE Estimated 84.4 mL/min (>60); POTASSIUM 4.3 mmol/L (3.5-5.1)
[2017-04-21 07:10] LABS: ALBUMIN SERUM 3.3 g/dL (3.5-5.0); BILIRUBIN,TOTAL 0.9 mg/dL (0.2-2.0); CALCIUM SERUM 8.7 mg/dL (8.4-10.2); CREATININE SERUM 1.1 mg/dL (0.6-1.4); GLOM FILT RATE Estimated 66.3 mL/min (>60); POTASSIUM 4.8 mmol/L (3.5-5.1)
[2017-04-21 18:33] LABS: BUN/CREATININE RATIO 26.36; CALCIUM SERUM 9.2 mg/dL (8.4-10.2); CREATININE SERUM 1.1 mg/dL (0.6-1.4); GLOM FILT RATE Estimated 66.3 mL/min (>60)
[2017-04-22 07:03] LABS: BUN/CREATININE RATIO 24.54; CALCIUM SERUM 8.9 mg/dL (8.4-10.2); CREATININE SERUM 1.1 mg/dL (0.6-1.4); GLOM FILT RATE Estimated 66.3 mL/min (>60); POTASSIUM 4.7 mmol/L (3.5-5.1)
[2017-04-23 11:22] LABS: GLOM FILT RATE Estimated 74.3 mL/min (>60); POTASSIUM 4.5 mmol/L (3.5-5.1)
[2017-04-23] MEDS ORDERED: PROTONIX PO (17:09)
== END 2017-04-23 18:18 | disposition home or self-care (01) | DRG 644 ==
LOC: C2A 11:30 → UNDOADMIN 13:38 → C2A 13:38
PROVIDERS: Internal Medicine; Internal Medicine Nephrology; Physician Assistant Medical
PROC: 0DB68ZX Excision of Stomach, Via Natural or Artificial Opening Endoscopic, Diagnostic (ICD-10-PCS; principal; 2017-04-22 07:45)
DX: E22.2 Syndrome of inappropriate secretion of antidiuretic hormone (principal); E27.40 Unspecified adrenocortical insufficiency; E11.649 Type 2 diabetes mellitus with hypoglycemia without coma; R53.1 Weakness; R11.2 Nausea with vomiting, unspecified; R42 Dizziness and giddiness; I25.10 Atherosclerotic heart disease of native coronary artery without angina pectoris; I10 Essential (primary) hypertension; E78.5 Hyperlipidemia, unspecified; F17.210 Nicotine dependence, cigarettes, uncomplicated; E87.5 Hyperkalemia; Z95.0 Presence of cardiac pacemaker; Z95.5 Presence of coronary angioplasty implant and graft; J44.9 Chronic obstructive pulmonary disease, unspecified; K44.9 Diaphragmatic hernia without obstruction or gangrene; K29.50 Unspecified chronic gastritis without bleeding; D35.02 Benign neoplasm of left adrenal gland; R63.0 Anorexia
CPT/HCPCS: 70450; 71020; 71250; 74176; 78264; 80048; 80053; 81003; 82533; 82550; 82947; 83036; 83930; 83935; 84295; 84300; 84439; 84443; 84484; 84550; 85027; 88305; 88312; 93005; 94640; 94664; 94760; A9541; C9113; J0833; J1650; J2405; J2920

== ENCOUNTER 2017-05-01 09:45 | Emergency (ER) | payer MEDICARE, OTHER ==
--- NOTE | ~2017-05-01 | EKG ---
PATIENT: OMMO ALEMAN UNIT #: [id number] Ventricular Rate: 60 BPM Atrial Rate: 60 BPM P-R Interval: 176 ms QRS Duration: 142 ms Q-T Interval: 420 ms QTC Calculation(Bezet): 420 ms P [place]: 92 degrees Calculated R [place]: 17 degrees Calculated T [place]: 25 degrees Diagnosis Line: Atrial-paced rhythm Diagnosis Line: Right bundle branch block Diagnosis Line: Abnormal ECG Diagnosis Line: When compared with ECG of 18-APR-2017 17:06, Diagnosis Line: Electronic atrial pacemaker has replaced Sinus Diagnosis Line: rhythm Diagnosis Line: Confirmed by ADAMARIS BELTRAN MD ([id number]) on Diagnosis Line: 05/02/2017 7:22:34 AM INTERPRETING MD: JULY
--- NOTE | ~2017-05-01 | CT71 ---
[facility] A Service of [facility] RADIOLOGY TEXT RESULTS PATIENT: MOMO ALEMAN LOCATION: [facility] : 43 UNIT #: [id number] AGE: [address]: Ezio Singh MD SEX: M ORDER DR: [id number] [facility] [address] [place], [place] [address] [id number] E MR#: [id number] Acc #: [id number] NAME: MOMO ALEMAN. : 1945 SEX: M STUDY DATE/TIME: 05/01/2017 10:59 UNIT: ALEX ROOM: STUDY DESCRIPTION: CT Head Wo Contrast Attending Physician: Ezio Singh M.D. Ordering Physician: Ezio Singh M.D. Primary Care Physician: Marj Brown M.D. MEDICAL IMAGING REPORT This report is preliminary unless electronic signature is present EXAM CT head. INDICATIONS Left hand numbness. Dizziness and weakness. Frontal headache for [address] of the head without contrast. This CT exam was performed with one or more of the following radiation dose reduction techniques: automatic exposure control, adjustment of mA and/or kV according to patient size, and iterative reconstruction. COMPARISON CT head dated 04/19/2017. FINDINGS There is no acute intracranial hemorrhage, mass lesion, or acute infarct. There is an old lacunar infarct in the right caudate measuring 0.90 cm. The ventricles and basilar cisterns are normal in size and configuration. No extraaxial collections. No acute osseous abnormalities. Visualized paranasal sinuses and mastoid air cells are clear. IMPRESSION 1. No acute intracranial findings. 2. Old lacunar infarct in the right caudate. Dictated by... Jaya Bautista M.D. THIS IS AN ELECTRONICALLY VERIFIED REPORT Jaya Bautista M.D. at 05/01/2017 2:39 PM [facility] A Service of [facility] RADIOLOGY TEXT RESULTS PATIENT: MOMO ALEMAN LOCATION: [facility] : 43 UNIT #: [id number] AGE: [address]: Ezio Singh MD SEX: M ORDER DR: DANIELA/marleni TD: 05/01/2017 13:26 JOB #: [id number] MEDICAL IMAGING REPORT Page 1 of 1 COPY
--- NOTE | ~2017-05-01 | CR72 ---
[facility] A Service of [facility] RADIOLOGY TEXT RESULTS PATIENT: MOMO ALEMAN LOCATION: [facility] : 43 UNIT #: [id number] AGE: [address]: Ezio Singh MD SEX: M ORDER DR: [id number] [facility] [address] [place], [place] [address] [id number] E MR#: [id number] Acc #: [id number] NAME: MOMO ALEMAN. : 1945 SEX: M STUDY DATE/TIME: 05/01/2017 10:44 UNIT: [facility] ROOM: STUDY DESCRIPTION: CR Chest Single View Portable Attending Physician: Ezio Singh M.D. Ordering Physician: Ezio Singh M.D. Primary Care Physician: Marj Brown M.D. MEDICAL IMAGING REPORT This report is preliminary unless electronic signature is present EXAM AP portable chest, 05/01/2017 at 10:44 HISTORY Weakness, dizziness, numbness in left hand beginning today. History of coronary artery stent placement. Previous smoking history. COMPARISON PA and lateral chest radiograph, 04/19/2017. FINDINGS Bilateral costophrenic angles not completely included in the imaging field of view. Lungs are free of acute airspace disease. Chronic mild interstitial prominence in the lung bases. No pleural effusion. No pneumothorax. Heart size within normal limits. Left chest wall pacemaker appears stable. IMPRESSION 1. No acute chest findings. 2. Chronic-appearing mild interstitial prominence in the lung bases may be related to the patient's stated history of COPD. Dictated by... Remedios Yang M.D. THIS IS AN ELECTRONICALLY VERIFIED REPORT Remedios Yang M.D. at 05/02/2017 8:35 AM GAB/loren TD: 05/01/2017 13:29 JOB #: [id number] MEDICAL IMAGING REPORT [facility] A Service of [facility] RADIOLOGY TEXT RESULTS PATIENT: MOMO ALEMAN LOCATION: [facility] : 43 UNIT #: [id number] AGE: [address]: Ezio Singh MD SEX: M ORDER DR: Page 1 of 1 COPY
[~2017-05-01 09:45] MED LIST changes: +HYDROCODON-ACE1 EAC9 PO; +PROTONIX PO
[2017-05-01 10:46] LABS: BASOPHIL# 0.1 X10e3 (0-0.3); EOSINOPHIL# 0.1 X10e3 (0-0.7); EOSINOPHIL% 1.7 % (0.0-7.0); HEMATOCRIT 40.4 % (38.0-50.0); HEMOGLOBIN 13.7 gm/dL (13.0-16.0); LYMPHOCYTE# 1.2 X10e3 (1.0-3.5); LYMPHOCYTE% 14.1 % (17.0-45.0); MEAN CELL VOLUME 93.5 FL (83-96); MEAN CORPUSCULAR HEMOGLOBIN 31.8 PG (28-34); MEAN PLATELET VOLUME 7.4 FL (6.5-11.5); MONOCYTE# 0.7 X10e3 (0-1.0); MONOCYTE% 8.8 % (3.0-12.0); NEUTROPHIL# 6.4 X10e3 (1.5-7.1); NEUTROPHIL% 74.4 % (40-75); PLATELET COUNT 279 X10e3 (140-420); RED BLOOD COUNT 4.33 X10e (3.90-5.60); RED CELL DISTRIBUTION WIDTH 14.6 % (11.0-15.5); WHITE BLOOD COUNT 8.5 X10e3 (4.0-10.5)
[2017-05-01 10:49] LABS: DIFF IND NO
[2017-05-01 10:54] LABS: POC - CKMB <1.0 ng/mL (0.0-7.9); POC - TROPONIN <0.05 ng/mL (<=0.05)
[2017-05-01 11:15] LABS: ALBUMIN SERUM 3.8 g/dL (3.5-5.0); BILIRUBIN, DIRECT 0.1 mg/dL (0.0-0.2); BILIRUBIN,INDIRECT 0.3 mg/dL (0.0-0.9); BILIRUBIN,TOTAL 0.4 mg/dL (0.2-2.0); CALCIUM SERUM 9.1 mg/dL (8.4-10.2); CREATININE SERUM 1.2 mg/dL (0.6-1.4); GLOM FILT RATE Estimated 59.6 mL/min (>60); POTASSIUM 4.3 mmol/L (3.5-5.1); PROTEIN TOTAL SERUM 6.5 g/dL (6.0-8.3)
== END 2017-05-01 12:01 | disposition home or self-care (01) ==
LOC: CED 09:45
PROVIDERS: Emergency Medicine
DX: R20.2 Paresthesia of skin (principal); E87.1 Hypo-osmolality and hyponatremia; I25.10 Atherosclerotic heart disease of native coronary artery without angina pectoris; E11.9 Type 2 diabetes mellitus without complications; I10 Essential (primary) hypertension; J45.909 Unspecified asthma, uncomplicated; Z95.5 Presence of coronary angioplasty implant and graft; F17.200 Nicotine dependence, unspecified, uncomplicated; Z79.899 Other long term (current) drug therapy; Z79.82 Long term (current) use of aspirin
CPT/HCPCS: 36415; 70450; 71010; 80048; 80076; 82553; 84484; 85025; 93005; 96360; 99285

== ENCOUNTER 2017-06-20 17:17 | Emergency (ER) | payer MEDICARE, OTHER ==
[~2017-06-20] VITALS: Ht 177.8 cm; Wt 79.4 kg
--- NOTE | ~2017-06-20 | EKG ---
PATIENT: MOMO ALEMAN UNIT #: [id number] Ventricular Rate: 60 BPM Atrial Rate: 60 BPM P-R Interval: 138 ms QRS Duration: 132 ms Q-T Interval: 430 ms QTC Calculation(Bezet): 430 ms P [place]: 95 degrees Calculated R [place]: 44 degrees Calculated T [place]: 42 degrees Diagnosis Line: Electronic atrial pacemaker Diagnosis Line: Right bundle branch block Diagnosis Line: Abnormal ECG Diagnosis Line: When compared with ECG of 01-MAY-2017 10:20, Diagnosis Line: No significant change was found Diagnosis Line: Confirmed by ADAMARIS BELTRAN MD ([id number]) on Diagnosis Line: 06/24/2017 9:59:46 PM INTERPRETING MD: JULY
--- NOTE | ~2017-06-20 | CT71 ---
[facility] A Service [facility] RADIOLOGY TEXT RESULTS PATIENT: MMOO ALEMAN LOCATION: SED : 43 UNIT #: [id number] AGE: [address]: Zach Leon MD SEX: M ORDER DR: [id number] [place] [address] [id number] E MR#: [id number] Acc #: [id number] NAME: MOMO ALEMAN. : 1945 SEX: M STUDY DATE/TIME: 06/20/2017 18:17 UNIT: SED ROOM: STUDY DESCRIPTION: CT Head Wo Contrast Attending Physician: Zach Leon M.D. Ordering Physician: Zach Leon M.D. Primary Care Physician: Marj Brown M.D. MEDICAL IMAGING REPORT This report is preliminary unless electronic signature is present. EXAM Head CT without contrast, 06/20/2017 HISTORY Lightheadedness, dizziness and staggering for 3 days. Diffuse headache. Patient feels like he is fall to the right. Coronary artery disease, hypertension and diabetes. FINDINGS This CT exam was performed with one or more of the following radiation dose reduction techniques: Automatic exposure control, adjustment of mA and/or kV according to patient size, and iterative reconstruction. Multiple axial images were obtained from the skull base to vertex without intravenous contrast administration. There is mild generalized atrophy. There is an old lacunar infarct in the head of the right caudate nucleus. There is no midline shift. There is no mass or mass effect, hemorrhage or acute infarct. Visualized paranasal sinuses demonstrate mucosal thickening in the ethmoid sinuses and there is fluid and/or debris in the frontal sinuses. IMPRESSION 1. Mild generalized atrophy. Old lacunar infarct involving the right head of the caudate nucleus. No acute intracranial abnormality. 2. Ethmoid and frontal sinusitis. Dictated by... Alen Lui M.D. THIS IS AN ELECTRONICALLY VERIFIED REPORT Alen Lui M.D. at 06/21/2017 7:19 AM [facility] A Service of [facility] RADIOLOGY TEXT RESULTS PATIENT: MOMO ALEMAN LOCATION: SED : 43 UNIT #: [id number] AGE: [address]: Zach Leon MD SEX: M ORDER DR: ELAINE/yesica TD: 06/21/2017 00:40 JOB #: [id number] MEDICAL IMAGING REPORT Page 1 of 1
[2017-06-20] MEDS ORDERED: HYDROCORTISONE10 M2 PO (17:40)
[2017-06-20 18:19] LABS: BASOPHIL# 0.1 X10e3 (0-0.3); EOSINOPHIL# 0.1 X10e3 (0-0.7); EOSINOPHIL% 2.2 % (0.0-7.0); HEMATOCRIT 38.5 % (38.0-50.0); HEMOGLOBIN 13.4 gm/dL (13.0-16.0); LYMPHOCYTE# 1.5 X10e3 (1.0-3.5); LYMPHOCYTE% 21.7 % (17.0-45.0); MEAN CELL VOLUME 93.3 FL (83-96); MEAN CORPUSCULAR HEMOGLOBIN 32.5 PG (28-34); MEAN CORPUSCULAR HGB CONC 34.9 g/dL (30-36); MEAN PLATELET VOLUME 8.1 FL (6.5-11.5); MONOCYTE# 0.8 X10e3 (0-1.0); MONOCYTE% 12.3 % (3.0-12.0); NEUTROPHIL# 4.3 X10e3 (1.5-7.1); NEUTROPHIL% 62.8 % (40-75); PLATELET COUNT 246 X10e3 (140-420); RED BLOOD COUNT 4.13 X10e (3.90-5.60); RED CELL DISTRIBUTION WIDTH 14.5 % (11.0-15.5); WHITE BLOOD COUNT 6.8 X10e3 (4.0-10.5)
[2017-06-20 18:24] LABS: DIFF IND NO
[2017-06-20 18:30] LABS: POC - CKMB 1.5 ng/mL (0.0-7.9); POC - TROPONIN <0.05 ng/mL (<=0.05)
[2017-06-20 18:37] LABS: ALBUMIN SERUM 4.2 g/dL (3.5-5.0); ALKALINE PHOSPHATASE 62 U/L (32-92); ALT (SGPT) 27 U/L (10-40); AST (SGOT) 22 U/L (10-42); BILIRUBIN,TOTAL 0.6 mg/dL (0.2-2.0); BLOOD UREA NITROGEN 11 mg/dL (9-23); CALCIUM SERUM 9.1 mg/dL (8.4-10.2); CARBON DIOXIDE 26 mmol/L (22-31); CHLORIDE 101 mmol/L (100-111); GLOM FILT RATE Estimated 74.3 mL/min (>60); GLUCOSE FASTING 111 mg/dL (70-110); PROTEIN TOTAL SERUM 6.9 g/dL (6.0-8.3); SODIUM 135 mmol/L (135-145)
[2017-06-20 18:38] LABS: BILIRUBIN, DIRECT <0.1 mg/dL (0.0-0.2); BILIRUBIN,INDIRECT 0.5 mg/dL (0.0-0.9)
== END 2017-06-20 19:29 | disposition home or self-care (01) ==
LOC: SED 17:17
PROVIDERS: Emergency Medicine
DX: H83.03 Labyrinthitis, bilateral (principal); J01.20 Acute ethmoidal sinusitis, unspecified; J01.10 Acute frontal sinusitis, unspecified; I25.10 Atherosclerotic heart disease of native coronary artery without angina pectoris; J44.9 Chronic obstructive pulmonary disease, unspecified; I10 Essential (primary) hypertension; F17.210 Nicotine dependence, cigarettes, uncomplicated
CPT/HCPCS: 36415; 70450; 80048; 80076; 82553; 82947; 84484; 85025; 93005; 96360; 96361; 99285

== ENCOUNTER → 2017-07-05 | Day surgery (SDC) | payer MEDICARE, OTHER ==
[~2017-07-05] MED LIST changes: +HYDROCORTISONE10 M2 PO
== END | disposition home or self-care (01) ==
LOC: COPS 11:54
DX: Z12.11 Encounter for screening for malignant neoplasm of colon (principal); Z53.9 Procedure and treatment not carried out, unspecified reason
CPT/HCPCS: 82947